=== PATIENT | female | born 1950 | race Caucasian/White ===

== ENCOUNTER 2024-04-26 19:02 | Inpatient (IN) | payer MEDICARE, OTHER ==
[~2024-04-26] VITALS: Ht 160 cm; Wt 45.4 kg
[2024-04-26] MEDS ORDERED: ACET-3117 PO (19:34)
[2024-04-26] MEDS ORDERED: TEMA30CA PO (19:34)
[2024-04-26] MEDS ORDERED: BUTA-247 PO (19:34)
[2024-04-26 19:45] LABS: BASOPHILS % (AUTO) 0.6 % (0.0-2.0); EOSINOPHILS # (AUTO) 0.1 K/uL (0.0-0.7); EOSINOPHILS % (AUTO) 1.5 % (0.0-7.0); HEMATOCRIT 31.9 % (31.2-41.9); LYMPHOCYTES # (AUTO) 1.4 K/uL (0.8-4.8); LYMPHOCYTES % (AUTO) 30.9 % (20.5-51.5); MEAN CORPUSCULAR HEMOGLOBIN 33.1 uug (24.7-32.8); MEAN CORPUSCULAR HGB CONC 34 g/dL (32.3-35.6); MEAN CORPUSCULAR VOLUME 96.3 fL (75.5-95.3); MONOCYTES # (AUTO) 0.4 K/uL (0.1-1.30); MONOCYTES % (AUTO) 9.6 % (0.0-11.0); NEUTROPHILS # (AUTO) 2.6 K/uL (1.8-8.9); NEUTROPHILS % (AUTO) 57.4 % (38.5-71.5); PLATELET COUNT (AUTO) 207 K/uL (179-408); RED BLOOD CELL COUNT(AUTO) 3.31 MIL/uL (3.63-4.92); WHITE BLOOD COUNT (AUTO) 4.5 K/uL (3.8-11.8)
[2024-04-26 20:00] LABS: ALANINE AMINOTRANSFERASE 19 U/L (14-59); ALBUMIN 3.4 g/dL (3.4-5.0); ALKALINE PHOSPHATASE 151 U/L (50-136); ASPARTATE AMINOTRANSFERASE 15 U/L (15-37); BILIRUBIN,DIRECT 0.1 mg/dL (0.0-0.2); BILIRUBIN,TOTAL 0.4 mg/dL (0.2-1.0); CALCIUM 9.5 mg/dL (8.5-10.1); CARBON DIOXIDE 29 mmol/L (21-32); CHLORIDE 102 mmol/L (98-107); CREATININE 0.8 mg/dL (0.6-1.3); GLUCOSE 103 mg/dL (74-106); SODIUM SERUM 140 mmol/L (136-145); UREA NITROGEN, BLOOD 29 mg/dL (7-18)
[2024-04-26 20:04] LABS: DIFFERENTIAL COMMENT 1
[2024-04-26 20:05] LABS: ACETAMINOPHEN < 2.0 ug/mL (10-30)
[2024-04-26 20:34] LABS: ETHANOL < 3 MG/DL (0-10)
[2024-04-26] MEDS ORDERED: ACET1TAB23 PO (22:12)
[2024-04-26] MEDS ORDERED: HYDR-894 PO (22:12)
[2024-04-26] MEDS ORDERED: ONDA4TAB5 PO (22:12)
[2024-04-26 22:43] LABS: *BILIRUBIN,URIN NEGATIVE (NEGATIVE); *BLOOD, URINE NEGATIVE (NEGATIVE); *CLARITY,URINE CLEAR (CLEAR); *COLOR,URINE YELLOW (YELLOW); *KETONES,URINE NEGATIVE (NEGATIVE); *PROTEIN,URINE NEGATIVE (NEGATIVE); *UROBILINOGEN,URINE 0.2 E.U./dl (NORMAL); LEUKOCYTE ESTERASE ,URINE NEGATIVE (NEGATIVE); NITRITE, URINE NEGATIVE (NEGATIVE); UGLUCOSE NEGATIVE (NEGATIVE)
[2024-04-26 22:45] VITALS: BP 104/67; TEMP 97.7; O2SAT 99
[2024-04-26 22:52] LABS: *AMPHETAMINE, URINE NEGATIVE (NEGATIVE); *BARBITURATE, URINE POSITIVE (NEGATIVE); *BENZODIAZEPINE, URINE NEGATIVE (NEGATIVE); *CANNABINOID, URINE NEGATIVE (NEGATIVE); *COCCAINE, URINE NEGATIVE (NEGATIVE); *OPIATE, URINE POSITIVE (NEGATIVE); *PHENCYCLIDINE SCREEN,URINE NEGATIVE (NEGATIVE); FENTANYL, URINE NEGATIVE (NEGATIVE)
[2024-04-26] MEDS ORDERED: CLONAZEPAM 0.5 MG TABLET PO PRN (23:15)
[2024-04-26] MEDS ORDERED: CLONAZEPAM 1 MG TABLET PO PRN (23:15)
[2024-04-26] MEDS ORDERED: MAGNESIUM HYDROXIDE 30 ML LIQUID UDC PO PRN (23:15)
[2024-04-26] MEDS ORDERED: MAG HYDROX/AL HYDROX/SIMETH 30 ML LIQUID UDC PO PRN (23:15)
[2024-04-27] MEDS: TEMAZEPAM 7.5 MG CAPSULE PO PRN ×2 (00:42→23:00)
[2024-04-27 08:18] VITALS: BP 109/64; TEMP 97.6; O2SAT 97
[2024-04-27] MEDS: NICOTINE 21 MG/24HR PATCH TD SCH (09:00)
[2024-04-27] MEDS: QUETIAPINE FUMARATE 25 MG TABLET PO SCH ×2 (09:38→21:23)
[2024-04-27] MEDS: ACETAMINOPHEN 325 MG TABLET PO PRN (10:01)
[2024-04-27] MEDS ORDERED: DOCU100C36 PO (11:03)
[2024-04-27] MEDS ORDERED: HYDR-4075 PO (11:04)
[2024-04-27] MEDS: BUTALB/ACETAMINOPHEN/CAFFEINE CAPSULE PO PRN (15:05)
[2024-04-27] MEDS: ACETAMINOPHEN/CODEINE 300-30 MG TABLET PO PRN (15:05)
[2024-04-27 16:22] VITALS: BP 117/72; TEMP 98; O2SAT 100
[2024-04-27] MEDS: ENSURE ENLIVE (VAN) 240 ML LIQUID PO SCH (17:46)
[2024-04-27 20:00] VITALS: BP 99/62; TEMP 97.9; O2SAT 96
[2024-04-27] MEDS: DOCUSATE SODIUM 100 MG CAPSULE PO PRN (21:23)
[2024-04-28 08:01] VITALS: BP 113/64; TEMP 98; O2SAT 99
[2024-04-28 15:49] VITALS: BP 111/60; TEMP 98; O2SAT 99
[2024-04-28 20:00] VITALS: BP 100/60; TEMP 98.1; O2SAT 96
[2024-04-29 08:22] VITALS: BP 103/57; TEMP 98.1; O2SAT 96
[2024-04-29 16:22] VITALS: BP 111/67; TEMP 98.2; O2SAT 100
[2024-04-29] MEDS: QUETIAPINE FUMARATE 25 MG TABLET PO SCH (16:37)
[2024-04-29] MEDS: CLONAZEPAM 1 MG TABLET PO PRN (20:21)
[2024-04-29 20:32] VITALS: BP 131/67; TEMP 98; O2SAT 85
[2024-04-30 08:22] VITALS: BP 102/60; TEMP 97.8; O2SAT 97
[2024-04-30 16:51] VITALS: BP 117/61; TEMP 98.5; O2SAT 96
[2024-04-30 20:19] VITALS: BP 112/7; TEMP 98.1; O2SAT 96
[2024-05-01] MEDS: TEMAZEPAM 7.5 MG CAPSULE PO PRN (03:23)
[2024-05-01] MEDS ORDERED: TEMAZEPAM 7.5 MG CAPSULE PO PRN (08:00)
[2024-05-01 08:18] VITALS: BP 105/58; TEMP 98.1; O2SAT 100
[2024-05-01] MEDS: QUETIAPINE FUMARATE 25 MG TABLET PO SCH (09:00)
[2024-05-01 16:51] VITALS: BP 149/77; TEMP 97.5; O2SAT 98
[2024-05-01 20:05] VITALS: BP 107/61; TEMP 98.1; O2SAT 96
[2024-05-01] MEDS ORDERED: QUETIAPINE FUMARATE 25 MG TABLET PO SCH (21:00)
[2024-05-01] MEDS: CLONAZEPAM 0.5 MG TABLET PO PRN (23:07)
[2024-05-02] MEDS: TEMAZEPAM 7.5 MG CAPSULE PO PRN ×2 (01:45→22:55)
[2024-05-02 08:00] VITALS: BP 93/51; TEMP 98.2; O2SAT 100
[2024-05-02] MEDS: CLONAZEPAM 1 MG TABLET PO PRN (15:16)
[2024-05-02 15:27] VITALS: BP 96/57; TEMP 98; O2SAT 96
[2024-05-02 20:00] VITALS: BP 107/53; TEMP 98; O2SAT 99
[2024-05-02] MEDS: QUETIAPINE FUMARATE 25 MG TABLET PO SCH (20:18)
[2024-05-03 07:48] VITALS: BP 90/43; TEMP 98; O2SAT 96
[2024-05-03] MEDS: QUETIAPINE FUMARATE 25 MG TABLET PO SCH (08:25)
[2024-05-03 15:20] VITALS: BP 104/63; TEMP 98; O2SAT 99
[2024-05-03 20:00] VITALS: BP 109/65; TEMP 97.8; O2SAT 100
[2024-05-04 07:45] VITALS: BP 102/47; TEMP 98; O2SAT 98
[2024-05-04 15:43] VITALS: BP 101/64; TEMP 98; O2SAT 99
[2024-05-04 20:00] VITALS: BP 119/60; TEMP 97.3; O2SAT 99
[2024-05-05 15:21] VITALS: BP_SYST 128; BP_SYST 90; BP_DIAS 50; BP_DIAS 72; TEMP 98; O2SAT 96
[2024-05-05 20:58] VITALS: BP 125/63; TEMP 97; O2SAT 100
[2024-05-06 08:20] VITALS: BP 128/71; TEMP 97.5; O2SAT 96
[2024-05-06 16:51] VITALS: BP 113/80; TEMP 98.1; O2SAT 99
[2024-05-06 20:27] VITALS: BP 126/74; TEMP 98.1; O2SAT 98
[2024-05-07 08:18] VITALS: BP 111/65; TEMP 98.3; O2SAT 98
[2024-05-07 16:56] VITALS: BP 120/67; TEMP 98.1; O2SAT 100
[2024-05-07 20:04] VITALS: BP 118/66; TEMP 98.2; O2SAT 98
[2024-05-08 08:20] VITALS: BP 101/55; TEMP 97.8; O2SAT 100
[2024-05-08 16:26] VITALS: BP 165/64; TEMP 98.1; O2SAT 100
[2024-05-08 20:00] VITALS: BP 101/51; TEMP 97.9; O2SAT 96
[2024-05-09 07:46] VITALS: BP 104/65; TEMP 98.2; O2SAT 99
[2024-05-09 17:35] VITALS: BP 132/80; TEMP 97.5; O2SAT 98
[2024-05-09 19:50] VITALS: BP 130/71; TEMP 97.5; O2SAT 98
[2024-05-10 08:01] VITALS: BP 90/51; TEMP 98; O2SAT 98
[2024-05-10 09:29] VITALS: BP 113/60; O2SAT 99
[2024-05-10 09:50] LABS: BASOPHILS % (AUTO) 0.7 % (0.0-2.0); EOSINOPHILS # (AUTO) 0.1 K/uL (0.0-0.7); EOSINOPHILS % (AUTO) 3.5 % (0.0-7.0); HEMATOCRIT 33.2 % (31.2-41.9); HEMOGLOBIN 11.6 g/dL (10.9-14.3); LYMPHOCYTES # (AUTO) 1.4 K/uL (0.8-4.8); LYMPHOCYTES % (AUTO) 34.8 % (20.5-51.5); MEAN CORPUSCULAR HEMOGLOBIN 33.1 uug (24.7-32.8); MEAN CORPUSCULAR HGB CONC 35 g/dL (32.3-35.6); MEAN CORPUSCULAR VOLUME 94.4 fL (75.5-95.3); MONOCYTES # (AUTO) 0.3 K/uL (0.1-1.30); MONOCYTES % (AUTO) 7.8 % (0.0-11.0); NEUTROPHILS # (AUTO) 2.1 K/uL (1.8-8.9); NEUTROPHILS % (AUTO) 53.2 % (38.5-71.5); PLATELET COUNT (AUTO) 183 K/uL (179-408); RED BLOOD CELL COUNT(AUTO) 3.52 MIL/uL (3.63-4.92); RED CELL DISTRIBUTION WIDTH 15.6 % (12.3-17.7)
[2024-05-10 09:51] LABS: DIFFERENTIAL COMMENT 1
[2024-05-10 10:09] LABS: CALCIUM 9.5 mg/dL (8.5-10.1); CARBON DIOXIDE 31 mmol/L (21-32); CHLORIDE 104 mmol/L (98-107); CREATININE 0.9 mg/dL (0.6-1.3); GLUCOSE 125 mg/dL (74-106); POTASSIUM 3.7 mmol/L (3.5-5.1); SODIUM SERUM 142 mmol/L (136-145); UREA NITROGEN, BLOOD 27 mg/dL (7-18)
[2024-05-10 15:26] VITALS: BP 143/86; TEMP 98; O2SAT 98
[2024-05-10] MEDS ORDERED: VITAMINS A AND D OINT 42 GM TUBE TP PRN (17:45)
[2024-05-10 19:57] VITALS: BP 105/60; TEMP 97.5; O2SAT 95
[2024-05-11 08:20] VITALS: BP 105/57; TEMP 98.1; O2SAT 98
== END 2024-05-11 16:15 | DRG 885 ==
LOC: ER 19:02 → GPS 22:28
PROVIDERS: ADMIT Psychiatry & Neurology Psychiatry; ATTEND Nurse Practitioner Family
DX: F29 Unspecified psychosis not due to a substance or known physiological condition (principal); R45.851 Suicidal ideations; Z59.01 Sheltered homelessness; G89.4 Chronic pain syndrome; G47.00 Insomnia, unspecified; I10 Essential (primary) hypertension; R45.850 Homicidal ideations; M15.9 Polyosteoarthritis, unspecified; E78.5 Hyperlipidemia, unspecified; F17.210 Nicotine dependence, cigarettes, uncomplicated; G43.909 Migraine, unspecified, not intractable, without status migrainosus; F41.9 Anxiety disorder, unspecified; R41.0 Disorientation, unspecified
CPT/HCPCS: 36415; 85025; A4606; A4663; G0480